=== PATIENT | female | born 1995 | race Caucasian/White ===

== ENCOUNTER 2021-03-15 08:06 | Emergency (ER) | payer OTHER ==
[~2021-03-15 08:06] MED LIST: ADALAT CC30 MG PO; EFFEXOR XR150 MG PO; EFFEXOR XR75 MG PO; FLEXERIL5 MG PO; HCTZ25 MG PO; IBUPROFEN800 MG PO; IRON325 M1 PO; K-DUR20 MEQ PO; LASIX40 MG PO; MACROBID100 MG PO; MEDROL 4MG DOSEP4 MG PO; MOTRIN600 MG PO; ONDANSETRON ODT4 MG SL; PERCOCET 5-3251 EACH PO; ROBAXIN750 MG PO; TRAZODONE HCL50 MG PO; ZANTAC150 MG PO
[2021-03-15 09:37] LABS: BASOPHIL 0.5 % (0-2); EOSINOPHIL 0.7 % (0-5); HGB 10.9 g/dl (12.5-16.0); LYMPHOCYTE 30.8 % (15-48); MCHC 31.1 g/dL (32.0-36.0); MCV 83.3 fL (78.0-100.0); MONOCYTE 7.7 % (0-12); MPV 10.2 fL (6.0-9.5); NEUTROPHIL 59.8 % (41-80); NRBC 0; PLT 261 K/uL (150-400); RDW 14.8 % (11.5-14.0); WBC 5.6 K/uL (4.0-10.5)
[2021-03-15 10:00] LABS: ALBUMIN 3.6 g/dL (3.4-5.0); BILIRUBIN - TOTAL 0.5 mg/dL (0.2-1.0); BUN/CREAT RATIO (CALC) 14.5 RATIO; CREATININE 0.62 mg/dL (0.51-0.95); GLOBULIN (CALCULATION) 3.3 g/dL; TOTAL PROTEIN 6.9 g/dL (6.4-8.2)
[2021-03-15] MEDS ORDERED: PRILOSEC20 MG PO (10:23)
== END 2021-03-15 10:35 | disposition home or self-care (01) ==
LOC: FER 08:06
PROVIDERS: Emergency Medicine
DX: K27.3 Acute peptic ulcer, site unspecified, without hemorrhage or perforation (principal); F17.290 Nicotine dependence, other tobacco product, uncomplicated; Z88.0 Allergy status to penicillin; Z88.2 Allergy status to sulfonamides
CPT/HCPCS: 36415; 80053; 83690; 85025; 93005